=== PATIENT | female | born 1970 | race Caucasian/White ===

== ENCOUNTER 2022-04-12 07:27 | Day surgery (SDC) | payer OTHER ==
[2022-04-06 11:50] VITALS: BMI 29.2
[2022-04-12] MEDS ORDERED: PROPOFOL 20 ML ONE (09:56)
[2022-04-12] MEDS ORDERED: KETOROLAC TROMETHAMINE 30 MG/1 ML VIAL ONE (09:56)
[2022-04-12] MEDS ORDERED: ONDANSETRON 4 MG/2 ML VIAL ONE (09:56)
[2022-04-12] MEDS ORDERED: LIDOCAINE HCL/PF 2% SDV 5ML VIAL ONE (09:56)
[2022-04-12] MEDS ORDERED: SUCCINYLCHOLINE CHLORIDE 200 MG/10 ML SYRINGE ONE (09:56)
[2022-04-12] MEDS ORDERED: hydrALAZINE HCL 20 MG/ML VIAL ONE (10:20)
[2022-04-12] MEDS ORDERED: ONDANSETRON 4 MG/2 ML VIAL IVPUSH PRN (10:34)
[2022-04-12 11:42] VITALS: TEMP 97.9
[2022-04-12 12:43] VITALS: BP 139/88; PULSE 93
== END 2022-04-12 11:50 | disposition home or self-care (01) ==
LOC: FECT 07:27
PROVIDERS: ATTEND Psychiatry & Neurology Psychiatry
PROC: GZB4ZZZ Other Electroconvulsive Therapy (ICD-10-PCS; principal; 2022-04-12 10:07)
DX: F32.9 Major depressive disorder, single episode, unspecified (principal)
CPT/HCPCS: 90870; 94760; C9803-CS; U0003; U0005

== ENCOUNTER 2022-04-14 08:55 | Day surgery (SDC) | payer OTHER ==
[2022-04-12 14:56] VITALS: BMI 29.2
[~2022-04-14 08:55] MED LIST: LACTATED RINGERS SOLUTION 1,000 ML IV SCH
[2022-04-14] MEDS ORDERED: KETAMINE HCL 500 MG/10 ML VIAL ONE (10:05)
[2022-04-14] MEDS ORDERED: ACETAMINOPHEN INJECTION 100 ML IVPB ONE (10:45)
[2022-04-14 10:51] VITALS: TEMP 97.1
[2022-04-14] MEDS ORDERED: ACETAMINOPHEN 1000 MG/100 ML BAG IVPB ONE (11:10)
[2022-04-14 12:15] VITALS: BP 144/88; PULSE 78
== END 2022-04-14 11:45 | disposition home or self-care (01) ==
LOC: FECT 08:55
PROVIDERS: ATTEND Psychiatry & Neurology Psychiatry
PROC: GZB4ZZZ Other Electroconvulsive Therapy (ICD-10-PCS; principal; 2022-04-14 10:29)
DX: F32.A Depression, unspecified (principal)
CPT/HCPCS: 90870; 94760

== ENCOUNTER 2022-04-19 07:15 | Day surgery (SDC) | payer OTHER ==
[2022-03-31 14:35] VITALS: BMI 29.2
[2022-04-19] MEDS ORDERED: KETAMINE HCL 500 MG/10 ML VIAL ONE (08:55)
[2022-04-19 09:56] VITALS: TEMP 97.8
[2022-04-19 10:26] VITALS: BP 149/95; PULSE 74
== END 2022-04-19 10:30 | disposition home or self-care (01) ==
LOC: FECT 07:15
PROVIDERS: ATTEND Psychiatry & Neurology Psychiatry
PROC: GZB4ZZZ Other Electroconvulsive Therapy (ICD-10-PCS; principal; 2022-04-19 09:05)
DX: F33.9 Major depressive disorder, recurrent, unspecified (principal)
CPT/HCPCS: 90870; 94760; C9803-CS; U0003; U0005

== ENCOUNTER 2022-04-21 08:19 | Day surgery (SDC) | payer OTHER ==
[2022-04-01 09:33] VITALS: BMI 29.2
[2022-04-21] MEDS ORDERED: KETAMINE HCL 500 MG/10 ML VIAL ONE (09:06)
[2022-04-21] MEDS ORDERED: ACETAMINOPHEN 1000 MG/100 ML BAG IVPB ONE ×2 (09:55→09:56)
[2022-04-21 11:01] VITALS: PULSE 85; TEMP 98
[2022-04-21 11:33] VITALS: BP 156/92
[2022-04-21] MEDS ORDERED: HYDROCHLOROTHIAZIDE 25 MG TABLET (FP) PO ONE (12:00)
== END 2022-04-21 11:34 | disposition home or self-care (01) ==
LOC: FECT 08:19
PROVIDERS: ATTEND Psychiatry & Neurology Psychiatry
PROC: GZB4ZZZ Other Electroconvulsive Therapy (ICD-10-PCS; principal; 2022-04-21 10:06)
DX: F32.A Depression, unspecified (principal)
CPT/HCPCS: 90870; 94760

== ENCOUNTER 2022-04-22 07:56 | Day surgery (SDC) | payer OTHER ==
[2022-03-31 13:49] VITALS: BMI 29.2
[2022-04-22] MEDS ORDERED: KETAMINE HCL 500 MG/10 ML VIAL ONE (09:01)
[2022-04-22] MEDS ORDERED: ACETAMINOPHEN INJECTION 100 ML IVPB ONE (09:01)
[2022-04-22 09:18] LABS: HEMATOCRIT 36.5 % (32.4-45.2); HEMOGLOBIN 12.4 G/dL (10.7-15.3); MCH 31.9 pg (25.7-33.7); MEAN CELL VOLUME 93.8 fl (80-96); PLATELET COUNT 246.4 10^3/uL (134-434); RBC 3.89 10^6/uL (3.60-5.2); RDW 13.1 % (11.6-15.6); WHITE BLOOD COUNT 6.9 10^3/uL (4.0-10.8)
[2022-04-22 09:27] LABS: ALBUMIN 3.9 g/dl (3.4-5.0); BILIRUBIN,TOTAL 0.5 mg/dl (0.2-1); CALCIUM 9.3 mg/dl (8.5-10); CREATININE 1.2 mg/dl (0.55-1.3)
[2022-04-22] MEDS ORDERED: hydrALAZINE HCL 20 MG/ML VIAL IVPUSH ONE (09:32)
[2022-04-22] MEDS ORDERED: ACETAMINOPHEN 1000 MG/100 ML BAG IVPB ONE (09:35)
[2022-04-22 13:56] VITALS: BP 151/101; PULSE 71; RESP 15; TEMP 97.8
== END 2022-04-22 11:00 | disposition home or self-care (01) ==
LOC: FECT 07:56
PROVIDERS: ATTEND Psychiatry & Neurology Psychiatry
PROC: GZB4ZZZ Other Electroconvulsive Therapy (ICD-10-PCS; principal; 2022-04-22 09:12)
DX: F33.2 Major depressive disorder, recurrent severe without psychotic features (principal)
CPT/HCPCS: 36415; 80053; 85027; 90870; 94760; C9803-CS; U0003; U0005

== ENCOUNTER 2022-04-26 09:02 | Day surgery (SDC) | payer OTHER ==
[2022-04-19 15:56] VITALS: BMI 29.2
[2022-04-26] MEDS ORDERED: KETAMINE HCL 500 MG/10 ML VIAL ONE (10:22)
[2022-04-26] MEDS ORDERED: ACETAMINOPHEN INJECTION 100 ML IVPB ONE (10:23)
[2022-04-26] MEDS ORDERED: DEXAMETHASONE SOD PHOSPHATE 4 MG/1 ML VIAL ONE (10:25)
[2022-04-26] MEDS ORDERED: ONDANSETRON 4 MG/2 ML VIAL ONE (10:25)
[2022-04-26] MEDS ORDERED: KETOROLAC TROMETHAMINE 30 MG/1 ML VIAL ONE (10:25)
[2022-04-26 10:54] VITALS: TEMP 97
[2022-04-26 11:55] VITALS: BP 101/60; PULSE 82; RESP 18
== END 2022-04-26 11:50 | disposition home or self-care (01) ==
LOC: FECT 09:02
PROVIDERS: ATTEND Psychiatry & Neurology Psychiatry
PROC: GZB4ZZZ Other Electroconvulsive Therapy (ICD-10-PCS; principal; 2022-04-26 10:31)
DX: F33.9 Major depressive disorder, recurrent, unspecified (principal)
CPT/HCPCS: 90870; 93005; 93010; 94760; C9803-CS; U0003; U0005

== ENCOUNTER 2022-04-28 08:27 | Day surgery (SDC) | payer OTHER ==
[2022-04-27 12:03] VITALS: BMI 29.2
[2022-04-28] MEDS ORDERED: KETAMINE HCL 500 MG/10 ML VIAL ONE (09:21)
[2022-04-28 11:47] VITALS: TEMP 97.7
[2022-04-28 11:54] VITALS: RESP 18
[2022-04-28 11:55] VITALS: BP 133/86; PULSE 71
== END 2022-04-28 10:40 | disposition home or self-care (01) ==
LOC: FECT 08:27
PROVIDERS: ATTEND Psychiatry & Neurology Psychiatry
PROC: GZB4ZZZ Other Electroconvulsive Therapy (ICD-10-PCS; principal; 2022-04-28 09:30)
DX: F33.9 Major depressive disorder, recurrent, unspecified (principal)
CPT/HCPCS: 90870; 94760

== ENCOUNTER 2022-04-29 08:25 | Day surgery (SDC) | payer OTHER ==
[2022-04-27 12:13] VITALS: BMI 29.2
[2022-04-29] MEDS ORDERED: KETAMINE HCL 500 MG/10 ML VIAL ONE (09:25)
[2022-04-29] MEDS ORDERED: DEXAMETHASONE SOD PHOSPHATE 4 MG/1 ML VIAL ONE (09:29)
[2022-04-29] MEDS ORDERED: KETOROLAC TROMETHAMINE 30 MG/1 ML VIAL ONE (09:29)
[2022-04-29] MEDS ORDERED: ONDANSETRON 4 MG/2 ML VIAL ONE (09:29)
[2022-04-29 11:29] VITALS: PULSE 84; RESP 16; TEMP 97.5
[2022-04-29 11:50] VITALS: BP 131/81
== END 2022-04-29 11:00 | disposition home or self-care (01) ==
LOC: FECT 08:25
PROVIDERS: ATTEND Psychiatry & Neurology Psychiatry
PROC: GZB4ZZZ Other Electroconvulsive Therapy (ICD-10-PCS; principal; 2022-04-29 09:36)
DX: F33.9 Major depressive disorder, recurrent, unspecified (principal)
CPT/HCPCS: 90870; 94760; C9803-CS; U0003; U0005

== ENCOUNTER 2022-05-03 08:33 | Day surgery (SDC) | payer OTHER ==
[2022-04-28 12:45] VITALS: BMI 29.2
[2022-05-03] MEDS ORDERED: KETAMINE HCL 500 MG/10 ML VIAL ONE (10:21)
[2022-05-03] MEDS ORDERED: ACETAMINOPHEN 325 MG TABLET (FP) PO PRN (10:50)
[2022-05-03 12:59] VITALS: RESP 16; TEMP 97.8
[2022-05-03 13:04] VITALS: BP 136/91; PULSE 70
== END 2022-05-03 11:45 | disposition home or self-care (01) ==
LOC: FECT 08:33
PROVIDERS: ATTEND Psychiatry & Neurology Psychiatry
PROC: GZB4ZZZ Other Electroconvulsive Therapy (ICD-10-PCS; principal; 2022-05-03 10:30)
DX: F33.2 Major depressive disorder, recurrent severe without psychotic features (principal)
CPT/HCPCS: 90870; 94760; C9803-CS; U0003; U0005

== ENCOUNTER 2022-05-05 08:32 | Day surgery (SDC) | payer OTHER ==
[2022-05-02 12:48] VITALS: BMI 29.2
[2022-05-05] MEDS ORDERED: KETAMINE HCL 500 MG/10 ML VIAL ONE (09:01)
[2022-05-05] MEDS ORDERED: ACETAMINOPHEN INJECTION 100 ML IVPB ONE (09:02)
[2022-05-05] MEDS ORDERED: LABETALOL HCL 5 MG/1 ML (100MG/20 ML VIAL) ONE (09:22)
[2022-05-06 15:54] VITALS: TEMP 97.6
[2022-05-06 15:58] VITALS: BP 146/93; PULSE 92; RESP 16
== END 2022-05-05 11:00 | disposition home or self-care (01) ==
LOC: FECT 08:32
PROVIDERS: ATTEND Psychiatry & Neurology Psychiatry
PROC: GZB4ZZZ Other Electroconvulsive Therapy (ICD-10-PCS; principal; 2022-05-05 09:15)
DX: F33.2 Major depressive disorder, recurrent severe without psychotic features (principal)
CPT/HCPCS: 90870; 94760

== ENCOUNTER 2022-05-06 08:27 | Day surgery (SDC) | payer OTHER ==
[2022-05-02 12:58] VITALS: BMI 29.2
[2022-05-06] MEDS ORDERED: KETAMINE HCL 500 MG/10 ML VIAL ONE (10:25)
[2022-05-06 11:44] VITALS: TEMP 97.8
[2022-05-06 11:51] VITALS: BP 150/98; PULSE 88; RESP 18
== END 2022-05-06 11:52 | disposition home or self-care (01) ==
LOC: FECT 08:27
PROVIDERS: ATTEND Psychiatry & Neurology Psychiatry
PROC: GZB4ZZZ Other Electroconvulsive Therapy (ICD-10-PCS; principal; 2022-05-06 10:42)
DX: F32.A Depression, unspecified (principal)
CPT/HCPCS: 90870; 94760; C9803-CS; U0003; U0005

== ENCOUNTER 2022-05-10 08:34 | Day surgery (SDC) | payer OTHER ==
[2022-05-04 12:16] VITALS: BMI 29.2
[2022-05-10] MEDS ORDERED: KETAMINE HCL 500 MG/10 ML VIAL ONE (09:31)
[2022-05-10] MEDS ORDERED: ACETAMINOPHEN INJECTION 100 ML IVPB ONE (09:33)
[2022-05-10] MEDS ORDERED: LABETALOL HCL 5 MG/1 ML (100MG/20 ML VIAL) ONE (09:56)
[2022-05-10 11:33] VITALS: RESP 18; TEMP 98.4
[2022-05-10 11:35] VITALS: BP 139/90; PULSE 89
== END 2022-05-11 14:00 | disposition home or self-care (01) ==
LOC: FECT 08:34
PROVIDERS: ATTEND Psychiatry & Neurology Psychiatry
PROC: GZB4ZZZ Other Electroconvulsive Therapy (ICD-10-PCS; principal; 2022-05-10 09:51)
DX: F32.9 Major depressive disorder, single episode, unspecified (principal)
CPT/HCPCS: 90870; 94760; C9803-CS; U0003; U0005

== ENCOUNTER 2022-05-13 08:20 | Inpatient (IN) | payer OTHER ==
[2022-05-09 11:50] VITALS: BMI 29.2
[2022-05-13] MEDS ORDERED: methylPREDNISolone NA SUCC 125 MG/2 ML VIAL IVPUSH SCH (09:45)
[2022-05-13 09:57] LABS: HEMATOCRIT 34.9 % (32.4-45.2); HEMOGLOBIN 12.2 G/dL (10.7-15.3); MCH 32.3 pg (25.7-33.7); MCHC 34.9 g/dl (32.0-36.0); MEAN CELL VOLUME 92.7 fl (80-96); MEAN PLT VOLUME 7.7 fl (7.5-11.1); PLATELET COUNT 226.7 10^3/uL (134-434); RBC 3.77 10^6/uL (3.60-5.2); RDW 13.3 % (11.6-15.6); WHITE BLOOD COUNT 6.8 10^3/uL (4.0-10.8)
[2022-05-13] MEDS: SODIUM CHLORIDE 1,000 ML IV SCH (09:59)
[2022-05-13] MEDS: LORATADINE 10 MG TABLET PO SCH (09:59)
[2022-05-13 10:03] LABS: PLATELET ESTIMATE ADEQUATE
[2022-05-13 10:11] LABS: ALBUMIN 3.6 g/dl (3.4-5.0); BILIRUBIN,TOTAL 0.8 mg/dl (0.2-1); CALCIUM 8.6 mg/dl (8.5-10); CREATININE 0.9 mg/dl (0.55-1.3); MAGNESIUM 2.2 mg/dL (1.8-2.4); PHOSPHOROUS 2.5 mg/dl (2.5-4.9); TOT PROT 6.4 g/dl (6.4-8.2)
[2022-05-13 10:16] LABS: CHOLESTEROL 207 mg/dl (50-200); HDL CHOLESTEROL 88 mg/dl (40-60); LDL CHOLESTEROL (ONLY DFH) 98 mg/dl (5-100); TRIGLYCERIDES 105 mg/dl (0-150)
[2022-05-13] MEDS ORDERED: methylPREDNISolone NA SUCC 40 MG/1 ML VIAL IVPUSH SCH (12:10)
[2022-05-13] MEDS: LORazepam 2 MG/ML SDV VIAL IVPUSH PRN ×2 (12:31→21:54)
[2022-05-13] MEDS: methylPREDNISolone NA SUCC 40 MG/1 ML VIAL IVPUSH SCH ×2 (15:10→20:27)
[2022-05-13 15:13] LABS: METHADONE, UR NEGATIVE (NEGATIVE); OPIATES, URI NEGATIVE (NEGATIVE); PHENCYCLIDINE,URINE NEGATIVE (NEGATIVE); URINE AMPHETAMINES NEGATIVE (NEGATIVE); URINE BARBITURATES NEGATIVE (NEGATIVE)
[2022-05-13 15:14] LABS: COCAINE, UR NEGATIVE (NEGATIVE); URINE BENZODIAZEPINES POSITIVE (NEGATIVE)
[2022-05-13] MEDS: LABETALOL HCL 200 MG TABLET (FP) PO SCH ×2 (20:27→22:05)
[2022-05-13] MEDS: ACETAMINOPHEN 325 MG TABLET (FP) PO PRN (20:27)
[2022-05-13] MEDS: QUEtiapine FUMARATE 100 MG TABLET (FP) PO SCH (21:44)
[2022-05-14] MEDS: methylPREDNISolone NA SUCC 40 MG/1 ML VIAL IVPUSH SCH ×4 (03:09→21:14)
[2022-05-14 08:11] LABS: HEMATOCRIT 33.5 % (32.4-45.2); HEMOGLOBIN 11.7 G/dL (10.7-15.3); MCH 32.4 pg (25.7-33.7); MCHC 34.8 g/dl (32.0-36.0); MEAN CELL VOLUME 93.1 fl (80-96); RDW 13.4 % (11.6-15.6); WHITE BLOOD COUNT 8.1 10^3/uL (4.0-10.8)
[2022-05-14 08:13] LABS: ALBUMIN 3.3 g/dl (3.4-5.0); BILIRUBIN,TOTAL 0.7 mg/dl (0.2-1); CALCIUM 7.9 mg/dl (8.5-10); CREATININE 0.7 mg/dl (0.55-1.3); TOT PROT 6.1 g/dl (6.4-8.2)
[2022-05-14] MEDS: LORazepam 2 MG/ML SDV VIAL IVPUSH PRN ×2 (08:26→21:31)
[2022-05-14] MEDS: ACETAMINOPHEN 325 MG TABLET (FP) PO PRN (08:27)
[2022-05-14] MEDS: LORATADINE 10 MG TABLET PO SCH (09:32)
[2022-05-14] MEDS: LABETALOL HCL 200 MG TABLET (FP) PO SCH ×2 (09:32→21:14)
[2022-05-14] MEDS: SODIUM CHLORIDE 1,000 ML IV SCH (09:33)
[2022-05-14] MEDS: TRIAMCINOLONE ACET 0.1% OINT 80 GM TUBE TP SCH (16:15)
[2022-05-14] MEDS: QUEtiapine FUMARATE 100 MG TABLET (FP) PO SCH (21:15)
[2022-05-14] MEDS ORDERED: oxyCODONE HCL 5 MG TABLET PO ONE (21:37)
[2022-05-15] MEDS: methylPREDNISolone NA SUCC 40 MG/1 ML VIAL IVPUSH SCH ×2 (02:46→09:24)
[2022-05-15] MEDS: SODIUM CHLORIDE 1,000 ML IV SCH (09:22)
[2022-05-15] MEDS: LABETALOL HCL 200 MG TABLET (FP) PO SCH ×2 (09:24→21:04)
[2022-05-15] MEDS: TRIAMCINOLONE ACET 0.1% OINT 80 GM TUBE TP SCH (09:24)
[2022-05-15] MEDS: LORATADINE 10 MG TABLET PO SCH (09:24)
[2022-05-15] MEDS ORDERED: KETOROLAC TROMETHAMINE 10 MG TABLET PO ONE (11:54)
[2022-05-15] MEDS ORDERED: KETOROLAC TROMETHAMINE 15 MG/ML VIAL IVPUSH PRN (12:09)
[2022-05-15] MEDS: ACETAMINOPHEN 325 MG TABLET (FP) PO PRN (12:22)
[2022-05-15] MEDS ORDERED: TRIAMCINOLONE ACET 0.1% OINT 80 GM TUBE TP SCH (15:56)
[2022-05-15] MEDS ORDERED: SENNOSIDES 8.6MG TABLET (FP) PO PRN (19:28)
[2022-05-15] MEDS: QUEtiapine FUMARATE 100 MG TABLET (FP) PO SCH (21:04)
[2022-05-15] MEDS: LORazepam 2 MG/ML SDV VIAL IVPUSH PRN (21:05)
[2022-05-16 02:03] VITALS: RESP 18
[2022-05-16] MEDS: LORazepam 2 MG/ML SDV VIAL IVPUSH PRN (08:00)
[2022-05-16] MEDS: TRIAMCINOLONE ACET 0.1% OINT 80 GM TUBE TP SCH (09:07)
[2022-05-16] MEDS: LORATADINE 10 MG TABLET PO SCH (09:08)
[2022-05-16] MEDS: LABETALOL HCL 200 MG TABLET (FP) PO SCH (09:09)
[2022-05-16 09:17] VITALS: BP 143/87; PULSE 77; TEMP 99
[2022-05-16] MEDS ORDERED: predniSONE 20 MG TABLET (UD) PO SCH (10:00)
== END 2022-05-16 13:03 | disposition home or self-care (01) | DRG 607 ==
LOC: FECT 08:20 → FM/S 09:58
PROVIDERS: ADMIT Psychiatry & Neurology Psychiatry
DX: L27.0 Generalized skin eruption due to drugs and medicaments taken internally (principal); T50.2X5A Adverse effect of carbonic-anhydrase inhibitors, benzothiadiazides and other diuretics, initial encounter; F32.9 Major depressive disorder, single episode, unspecified; I10 Essential (primary) hypertension; E03.9 Hypothyroidism, unspecified; E78.5 Hyperlipidemia, unspecified; F41.0 Panic disorder [episodic paroxysmal anxiety]; F43.10 Post-traumatic stress disorder, unspecified; Y92.89 Other specified places as the place of occurrence of the external cause
CPT/HCPCS: 36415; 80053; 80061; 80307; 81003; 81025; 82607; 82728; 82930; 83036; 83540; 83550; 83735; 84100; 84439; 84443; 84703; 85027; 85651; 86038; 86140; 86618; 86666; 86780; 87040; 87798; 87799; 90870; 93005; 93010; 94760; C9803-CS; U0003; U0005

== ENCOUNTER 2022-05-17 08:27 | Day surgery (SDC) | payer OTHER ==
[2022-05-10 14:15] VITALS: BMI 29.2
[2022-05-17] MEDS ORDERED: KETAMINE HCL 500 MG/10 ML VIAL ONE (09:08)
[2022-05-17] MEDS ORDERED: LABETALOL HCL 5 MG/1 ML (100MG/20 ML VIAL) ONE (09:19)
[2022-05-17 10:16] VITALS: PULSE 75; RESP 18
[2022-05-17 10:24] VITALS: BP 141/84; TEMP 98
== END 2022-05-17 10:31 | disposition home or self-care (01) ==
LOC: FECT 08:27
PROVIDERS: ATTEND Psychiatry & Neurology Psychiatry
PROC: GZB4ZZZ Other Electroconvulsive Therapy (ICD-10-PCS; principal; 2022-05-17 09:16)
DX: F32.A Depression, unspecified (principal)
CPT/HCPCS: 90870; 94760; C9803-CS; U0003; U0005

== ENCOUNTER 2022-05-19 08:32 | Day surgery (SDC) | payer OTHER ==
[2022-05-12 11:17] VITALS: BMI 29.2
[2022-05-19] MEDS ORDERED: KETAMINE HCL 500 MG/10 ML VIAL ONE (10:56)
[2022-05-19] MEDS ORDERED: SUCCINYLCHOLINE CHLORIDE 200 MG/10 ML SYRINGE ONE (11:07)
[2022-05-19] MEDS ORDERED: LABETALOL HCL 5 MG/1 ML (100MG/20 ML VIAL) IVPUSH ONE (11:32)
[2022-05-19 12:28] VITALS: RESP 16; TEMP 98.4
[2022-05-19 12:38] VITALS: BP 137/93; PULSE 76
== END 2022-05-19 12:35 | disposition home or self-care (01) ==
LOC: FECT 08:32
PROVIDERS: ATTEND Psychiatry & Neurology Psychiatry
PROC: GZB4ZZZ Other Electroconvulsive Therapy (ICD-10-PCS; principal; 2022-05-19 11:13)
DX: F33.9 Major depressive disorder, recurrent, unspecified (principal)
CPT/HCPCS: 90870; 94760

== ENCOUNTER 2022-05-24 08:07 | Day surgery (SDC) | payer OTHER ==
[2022-05-23 11:12] VITALS: BMI 29.2
[2022-05-24] MEDS ORDERED: ACETAMINOPHEN 325 MG TABLET (FP) PO PRN (09:24)
[2022-05-24] MEDS ORDERED: PROMETHAZINE HCL 25 MG/1 ML VIAL IVPUSH PRN (09:24)
[2022-05-24] MEDS ORDERED: LACTATED RINGERS SOLUTION 1,000 ML IV SCH (09:30)
[2022-05-24] MEDS ORDERED: KETAMINE HCL 500 MG/10 ML VIAL ONE (10:20)
[2022-05-24 12:24] VITALS: RESP 18; TEMP 97.9
[2022-05-24 12:25] VITALS: BP 138/79; PULSE 81
== END 2022-05-24 11:50 | disposition home or self-care (01) ==
LOC: FECT 08:07
PROVIDERS: ATTEND Psychiatry & Neurology Psychiatry
PROC: GZB4ZZZ Other Electroconvulsive Therapy (ICD-10-PCS; principal; 2022-05-24 10:31)
DX: F32.A Depression, unspecified (principal)
CPT/HCPCS: 90870; 94760; C9803-CS; U0003; U0005